=== PATIENT | female | born 1980 | race Caucasian/White ===

== ENCOUNTER 2019-07-11 18:53 | Emergency (ER) | payer SELFPAY ==
[2019-07-11 18:58] VITALS: PULSE 104; RESP 20; TEMP 36.7; O2SAT 95; BMI 41.9
[2019-07-11 19:01] VITALS: BP 261/141
--- NOTE | 2019-07-11 19:08 | ED_ITS ---
Entered by Mireya Santacruz, acting as scribe for Gurmeet Caputo DO HPI - Extremity Problem General: Chief complaint: Extremity Problem,Nontraumatic Stated complaint: SWOLLEN LEGS Time Seen by Provider: 07/11/19 19:07 Source: patient Mode of arrival: ambulatory History of Present Illness: HPI Narrative: 38 y/o female presents to the ED with complaint of lower extremity swelling. Pt states she has been out of her blood pressure medication for the past year. She reports having a rash on both legs for 2 months. It started on the right solares and she thought it might have been a spider bite. Since then it has spread to the other leg and is very itchy. She reports some difficulty breathing/wheezing when she lays flat in bed at night. MD Complaint: extremity swelling Onset (ago): week(s) Pain Consistency: constant Location: left, right and lower extremity Associated symptoms: Reports rash (foliculitis to BLE); Deny chest pain or fever(s) Review of Systems Const: Denies: fever or chills Eyes: Denies: change in vision or blurry vision ENMT: Denies: Change in hearing, nose bleeds, post nasal drip or facial/sinus pain Card: Reports: edema, swelling of feet/ankles and shortness of breath when lying down; Denies: chest pain, palpitations, irregular heart rhythm or shortness of breath on exertion Resp: Reports: wheezing (at night while laying flat); Denies: productive cough or non-productive cough GI: Denies: abdominal pain, nausea, vomiting, rectal pain, blood in stool or black tarry stool : Denies: painful urination, urinary frequency, urinary urgency or blood in urine Musc: Reports: extremity swelling; Denies: neck pain, back pain, redness or joint warmth Skin/Breast: Reports: rash (foliculitis to BLE), itching and redness Neuro: Denies: headache, dizziness, vertigo, confusion or seizure-like activity Psych: Denies: anxiety PFSH ED PFSH: Social History Smoking and tobacco status: former smoker Female Reproductive History: Date of last menstrual period: 07/11/19 Physical Exam Const: COMMON NORMALS: alert GENERAL APPEARANCE: well developed ORIENTATION/CONSCIOUSNESS: Yes awake, Yes oriented to person, Yes oriented to place and Yes oriented to time HENMT: COMMON NORMALS: normocephalic, external ears normal, external nose normal and moist oral mucous membranes HEAD & SCALP: normocephalic; no scalp tenderness FACE & SINUS: normal facial exam NOSE: external nose normal and no nasal discharge EXTERNAL EAR: Yes external ears normal MOUTH: tongue normal TEETH & GINGIVA: no abnormal tooth and associated gingiva THROAT: posterior oropharynx normal; no peritonsillar mass Eye: COMMON NORMALS: PERRL, EOMs intact bilaterally and conjunctivae normal EYELID: eyelids normal CONJUNCTIVA: Yes conjunctivae normal PUPIL: Yes PERRL Chest: COMMONS NORMALS: inspection of chest normal CHEST: Yes symmetrical chest wall rise and No tenderness Resp: COMMON NORMALS: clear to auscultation bilaterally EFFORT & INSPECTION: No tachypneic, No respiratory distress, No retractions, No uses accessory muscles and No tracheal deviation AUSCULTATION: clear to auscultation bilaterally, no rhonchi, no wheezes and lung sounds not diminished Cardio: COMMON NORMALS: regular rate and regular rhythm RATE: regular rate RHYTHM: regular rhythm HEART SOUNDS: no murmurs PERIPHERAL PULSES: radial pulses present GI: INSPECTION: No abdominal distension AUSCULTATION: No hyperactive bowel sounds and No hypoactive bowel sounds PALPATION: No tender, No guarding and No rigid PERCUSSION: no dullness to percussion and no tympanic to percussion : COMMON NORMALS: Yes no CVA tenderness BLADDER/KIDNEY EXAM: Yes no CVA tenderness Back/Pelvis: COMMON NORMALS: no CVA tenderness PELVIS: Yes no pain with anterior-posterior compression and Yes no pain with lateral compression Extremity: GENERAL: Yes edema RIGHT LOWER EXTREMITY: Yes lower leg LEFT LOWER EXTREMITY: Yes lower leg Neuro: SENSORIUM/ORIENTATION: Yes alert, Yes oriented to person, Yes oriented to place and Yes oriented to time Psych: COMMON NORMALS: mental status grossly normal and speech normal SPEECH: Yes normal speech Skin: RASHES: rashes noted (folliculitis, erythema) Course Vital Signs: Vital signs: Vital Signs Temperature 98.1 F 07/11/19 18:58 Pulse Rate 86 07/11/19 20:31 Respiratory Rate 18 07/11/19 20:31 Blood Pressure 200/114 07/11/19 20:31 Pulse Oximetry 98 07/11/19 20:31 MDM - Extremity (Nontraumatic) MDM Narrative: Medical decision making narrative: Labs are benign. Blood pressure began to came down with the clonidine. She will be prescribed lisinopril and hydrochlorothiazide because of the edema and stasis dermatitis. She also be prescribed doxycycline for the follicular component. Lab Data: Labs: Lab Results 07/11/19 07/11/19 07/11/19 Range/Units 19:28 19:28 19:28 WBC 6.2 (4.0-10.0) 10^3/ uL RBC 4.50 (4.1-5.3) 10^6/u L Hgb 10.5 L (11.5-15.3) g/dL Hct 35.6 L (37.0-47.0) % MCV 79.1 L (81-99) fL MCH 23.3 L (28.0-34.0) pg MCHC 29.5 L (30.0-36.0) g/dL RDW 17.2 H (12.1-15.1) % Plt Count 293 (130-400) 10^3/c mm MPV 10.2 (7.4-10.4) fL Neut % (Auto) 68.7 % Lymph % (Auto) 20.0 % [place] % (Auto) 6.4 % Eos % (Auto) 4.0 % Baso % (Auto) 0.6 % Neut # (Auto) 4.3 (1.8-7.7) 10^3/u L Lymph # (Auto) 1.3 (0.8-4.8) 10^3/u L [place] # (Auto) 0.4 (0.2-0.9) 10^3/u L Eos # (Auto) 0.3 (0.0-0.8) 10^3/u L Baso # (Auto) 0.0 (0.0-0.1) 10^3/u L Nucleated RBC % (a uto) 0 % Nucleated RBCs # 0.0 /100WBC Sodium 139 (136-145) mmol/L Potassium 3.5 (3.5-5.1) mmol/L Chloride 102 (98-107) mmol/L Carbon Dioxide 25 (22-29) mmol/L Anion Gap 15.5 (5-19) BUN 13 (6-20) mg/dL Creatinine 0.6 (0.5-0.9) mg/dL GFR Calculation 112.5 (90-130) mL/min Glucose 129 H (65-115) mg/dL Calcium 9.5 (8.5-10.5) mg/dL Total Bilirubin 0.6 (0.15-1.2) mg/dL AST 29 (0-32) U/L ALT 31 (0-33) U/L Alkaline Phosphata se 89 (35-105) IU/L Total Protein 7.4 (6.6-8.7) g/dL Albumin 3.9 (3.5-5.2) g/dL Globulin 3.5 (1.3-4.6) g/dL HCG, Qual Negative (Negative) Discharge Plan Discharge Patient Disposition: Home, Self-Care Clinical Impression: Venous stasis dermatitis of both lower extremities, Lower extremity edema Hypertension Qualifiers: Hypertension type: essential hypertension Qualified Code(s): I10 - Essential (primary) hypertension Condition: Stable Prescriptions: New doxycycline hyclate 100 mg capsule 100 mg PO BID 10 Days Qty: 20 RF: 0 lisinopril 20 mg tablet 20 mg PO DAILY Qty: 30 RF: 0 hydrochlorothiazide 25 mg tablet 25 mg PO DAILY Qty: 30 RF: 0 Discharge Orders: Discharge Order (Routine); Ordered 07/11/19 Ordered By: Gurmeet Caputo Referrals: Nazanin Calderon MD [Family Provider] - Discharge Diet: Usual diet Discharge Activity: Increase activity as tolerated Patient Instructions: Chronic Hypertension (ED), Stasis Dermatitis (ED) Activity Restrictions/Additional Instructions: Return for fever greater than 100, worsening swelling despite treatment, other concerning symptoms. You should hear from case management next week to set up a primary provider. Discharge Date/Time: 07/11/19 20:32 Coding Level of Care Code ED Supervisor Assembly And Packing for Chg Fwd Exam Comprehensive The documentation recorded by the Noam montague Ashley, accurately reflects the service I personally performed and the decisions made by Harshal benson Jeremy John, DO Jul 11, 2019 18:53
[2019-07-11] MEDS: doxycycline 100 mg Tablet PO (19:35)
[2019-07-11] MEDS: dexamethasone 4 mg Tablet 8 MG PO (19:36)
[2019-07-11] MEDS: lisinopril 20 mg Tablet PO (19:36)
[2019-07-11] MEDS: FUROsemide 40 mg Tablet 80 MG PO (19:36)
[2019-07-11 19:40] LABS: Basophils % 0.6 %; Eosinophils # 0.3 10^3/uL (0.0-0.8); Hematocrit 35.6 % (37.0-47.0); Hemoglobin 10.5 g/dL (11.5-15.3); Lymphocytes # 1.3 10^3/uL (0.8-4.8); Mean Corpuscular HGB Conc 29.5 g/dL (30.0-36.0); Mean Corpuscular Hemoglobin 23.3 pg (28.0-34.0); Mean Corpuscular Volume 79.1 fL (81-99); Mean Platelet Volume 10.2 fL (7.4-10.4); Monocytes # 0.4 10^3/uL (0.2-0.9); Monocytes % 6.4 %; Neutrophils # 4.3 10^3/uL (1.8-7.7); Neutrophils % 68.7 %; Nucleated Red Blood Cells % 0 %; Platelet Count 293 10^3/cmm (130-400); Red Cell Distribution Width 17.2 % (12.1-15.1); White Blood Count 6.2 10^3/uL (4.0-10.0)
[2019-07-11] MEDS: cloNIDine 0.1 mg Tablet 0.2 MG PO (19:41)
[2019-07-11 19:56] LABS: Alanine Aminotransferase 31 U/L (0-33); Albumin Level 3.9 g/dL (3.5-5.2); Alkaline Phosphatase 89 IU/L (35-105); Anion Gap 15.5 (5-19); Aspartate Amino Transferase 29 U/L (0-32); Blood Urea Nitrogen 13 mg/dL (6-20); Calcium 9.5 mg/dL (8.5-10.5); Carbon Dioxide 25 mmol/L (22-29); Chloride 102 mmol/L (98-107); Globulin 3.5 g/dL (1.3-4.6); Glomerular Filtration Rate 112.5 mL/min (90-130); Glucose 129 mg/dL (65-115); Potassium 3.5 mmol/L (3.5-5.1); Sodium 139 mmol/L (136-145); Total Bilirubin 0.6 mg/dL (0.15-1.2); Total Protein 7.4 g/dL (6.6-8.7)
--- NOTE | 2019-07-11 19:58 | ECG_ITS ---
Measurements Intervals [place] Rate: 82 P: 53 GA: 155 QRS: 37 QRSD: 110 T: 164 QT: 407 QTc: [address] DEVIATION AND MODERATE T-WAVE ABNORMALITY, CONSIDER LATERAL ISCHEMIA No previous ECG available for comparison Electronically Signed On 07-12-2019 13:06:57 PASTEURIZER HELPER by Klaudia Ordoñez M.D. [email or web address]
--- NOTE | 2019-07-11 20:16 | PC.NURSE ---
EKG performed and shown to ED physician.
[2019-07-11 20:18] VITALS: BP 222/126; PULSE 75; RESP 16; O2SAT 99
[2019-07-11 20:31] VITALS: BP 200/114; PULSE 86; RESP 18; O2SAT 98
[2019-07-11 20:39] LABS: HCG, Serum Qual Negative (Negative)
--- NOTE | 2019-07-14 14:16 | DCPLANNER ---
restaurant area manager had message to speak with patient about getting established with a primary care physician. restaurant area manager called patient, unable to speak with patient at this time. restaurant area manager left a message for patient to return mattress spring encaser phone call.
--- NOTE | 2019-07-17 11:07 | DCPLANNER ---
frozen foods manager called [facility], spoke with Katerin, a follow up appointment was scheduled for Sunday, July 28, 2019 at 9:00 with Anamaria Randall. frozen foods manager called patient to inform patient of this, unable to speak with patient at this time. frozen foods manager left a voicemail for patient to return pillowcase cutter phone call.
--- NOTE | 2019-07-29 15:31 | DCPLANNER ---
Patient did attend appointment scheduled for 07.28.19 at [facility] with Alida Randall.
== END 2019-07-11 20:32 | disposition home or self-care (01) ==
PROVIDERS: Emergency Provider Emergency Medicine; Family Provider Family Medicine
DX: I87.2 Venous insufficiency (chronic) (peripheral) (principal); I10 Essential (primary) hypertension; Z87.891 Personal history of nicotine dependence
CPT/HCPCS: 80053; 84703; 85025; 93005; 99281; 99283; J8540

== ENCOUNTER → 2019-10-19 14:00 | Outpatient (BNVA) | payer SELFPAY | PROVIDERS: Family Provider Family Medicine; PCP Nurse Practitioner; Visit Provider Obstetrics & Gynecology | DX: N92.1 Excessive and frequent menstruation with irregular cycle (principal) | CPT/HCPCS: 83001; 84146; 84443; 84703; 85025 ==

== ENCOUNTER → 2019-10-30 09:21 | Outpatient (BNVA) | payer SELFPAY | PROVIDERS: Family Provider Family Medicine; PCP Nurse Practitioner; Visit Provider Obstetrics & Gynecology | DX: N92.1 Excessive and frequent menstruation with irregular cycle (principal) | CPT/HCPCS: 76830; 76856 ==

== ENCOUNTER 2019-12-02 11:41 | Day surgery (SDC) | payer SELFPAY ==
[2019-12-02] VITALS (8 sets, daily range): BP systolic 111–195; BP diastolic 64–111; PULSE 84–87; RESP 16–20; TEMP 36.4–37.1; O2SAT 98–100
[2019-12-02 12:00] LABS: OR HCG Qualitative Urine Negative (Negative)
[2019-12-02] MEDS: sodium chloride 0.9% 1,000 ML 30 ML IV (12:16)
[2019-12-02 12:22] LABS: Basophils % 0.4 %; Eosinophils # 0.1 10^3/uL (0.0-0.8); Eosinophils % 1.8 %; Hematocrit 31.8 % (37.0-47.0); Hemoglobin 8.8 g/dL (11.5-15.3); Lymphocytes # 1.5 10^3/uL (0.8-4.8); Lymphocytes % 18.3 %; Mean Corpuscular HGB Conc 27.7 g/dL (30.0-36.0); Mean Corpuscular Hemoglobin 19.8 pg (28.0-34.0); Mean Corpuscular Volume 71.5 fL (81-99); Mean Platelet Volume 9.6 fL (7.4-10.4); Monocytes # 0.5 10^3/uL (0.2-0.9); Monocytes % 5.7 %; Neutrophils # 5.81 10^3/uL (1.8-7.7); Neutrophils % 73.4 %; Nucleated Red Blood Cells % 0 %; Platelet Count 389 10^3/cmm (130-400); Red Blood Count 4.45 10^6/uL (4.1-5.3); Red Cell Distribution Width 18.3 % (12.1-15.1); White Blood Count 7.9 10^3/uL (4.0-10.0)
--- NOTE | 2019-12-02 12:38 | P.ANESASSM_ITS ---
Pre-Anesthetic Assessment Pre-Anesthetic Assessment: Height/Weight: Height 1.68 m Weight 132.449 kg Temp Pulse Resp BP Pulse Ox 97.5 F L 87 18 190/91 100 12/02/19 12:08 12/02/19 12:08 12/02/19 12:08 12/02/19 12:20 12/02/19 12:08 Proposed Procedure: Operation Date: 12/02/19 13:00 Proposed Procedures p Hysteroscopy w/ Paracervical Block 88923 [id number] 79968 N93.9 N92.1(Not Applicable) - Joseph Mckoy MD s Dilation And Curettage (D&C) w/ Myosure(Not Applicable) - Joseph Mckoy MD Was Beta Mohsen taken within 24 hours: N/A Last intake: Intake Last Liquid Date 12/01/19 Last Liquid Time 00:00 Last Solid Date 12/01/19 Last Solid Time 18:00 Social: Social History: No alcohol and No tobacco Exam: Pre-Anes Outpt Exam: alert, oriented x 3 and clear to auscultation bilaterally Airway: Submandibular: WNL Cervical ROM: WNL MP: 1 History/ROS: No significant complaints Pulmonary: Pulmonary: None reported CV/HEM: CV/HEM: HTN : : None reported Hepatic: Hepatic: None reported GI: GI: None reported Metabolic: Metabolic: Morbid obesity Musc/skel: [facility] [place]/skel: None reported Neuropsych: Neuropsych: None reported Anesthetic Plan: ASA status: 2 Anesthesia: General Meds/Allergies Current Medications: Current Medications Generic Name Dose Route Start Last Admin Trade Name Freq PRN Reason Stop Dose Admin Sodium Chloride 1,000 mls @ 30 ml s/hr 12/02/19 11:45 12/02/19 12:16 Sodium Chloride 0.9% IV 12/03/19 11:44 30 mls/hr .Q24H MIKEY Administration PFSH Anesthesia PFSH: Medical History delivery delivered Hypertension Menometrorrhagia Morbid obesity Surgical History History of tubal ligation Hx of appendectomy Family History Father Diabetes Hypertension Hyperlipidemia Grandmother Diabetes Paternal grandmother Hypertension Hyperlipidemia Heart disease Paternal grandmother Mother Hypertension Family/Other Breast cancer Paternal aunt--dx in her 50s Other Cancer Dementia Lung disease Denies family history of Colon cancer Ovarian cancer Family history of thyroid problem Uterine cancer Stroke Social History Smoking and tobacco status: former smoker Quit status (tobacco): has quit using tobacco Year quit tobacco: as a kid Alcohol intake: never Substance/Drug Use: never Female Reproductive History: Date of last menstrual period: 11/29/19 Data Anesthesia CBC & Chem 7: 12/02/19 12:00 Other Labs: Laboratory Results - last 48 hr 12/01/19 12/02/19 11:59 12:00 WBC 7.9 RBC 4.45 Hgb 8.8 L Hct 31.8 L MCV 71.5 L MCH 19.8 L MCHC 27.7 L RDW 18.3 H Plt Count 389 MPV 9.6 Neut % (Auto) 73.4 Lymph % (Auto) 18.3 [place]bert % (Auto) 5.7 Eos % (Auto) 1.8 Baso % (Auto) 0.4 Neut # (Auto) 5.81 Lymph # (Auto) 1.5 Elbert # (Auto) 0.5 Eos # (Auto) 0.1 Baso # (Auto) 0.0 Nucleated RBC % (auto) 0 Nucleated RBCs # 0.0 Urine HCG, Qual Negative Cardiac Studies: No Data to Display
[2019-12-02 12:40] LABS: Anion Gap 12.6 (5-19); Blood Urea Nitrogen 11 mg/dL (6-20); Calcium 8.9 mg/dL (8.5-10.5); Carbon Dioxide 27 mmol/L (22-29); Chloride 104 mmol/L (98-107); Glomerular Filtration Rate 111.9 mL/min (90-130); Glucose 120 mg/dL (65-115); Osmolality Calculated 287 mOsm/kg (285-295); Potassium 3.6 mmol/L (3.5-5.1); Sodium 140 mmol/L (136-145)
--- NOTE | 2019-12-02 12:54 | W.PM.OPSUD ---
Surgery/Procedure H&P Update DATE OF PROCEDURE: December 02, 2019 DATE H&P PERFORMED: 11/30/19 H&P UPDATE INFORMATION: I have reviewed H&P completed within last 30 days, I have examined patient prior to procedure and No changes to prior documentation PLANNED PROCEDURE: Operation Date: 12/02/19 13:00 Proposed Procedures p Hysteroscopy w/ Paracervical Block 54992 [id number] 02011 N93.9 N92.1(Not Applicable) - Joseph Mckoy MD s Dilation And Curettage (D&C) w/ Myosure(Not Applicable) - Joseph Mckoy MD
--- NOTE | 2019-12-02 13:59 | P.OP_ITS ---
Operative Report Date of procedure: December 02, 2019 Pre-op Diagnosis: Abnormal uterine bleeding Post-op diagnosis: same Post-op Findings: Proliferative endometrium Procedure Done: Hysteroscopy with dilation and curettage Pathology: Endometrial curettings Surgeon: Joseph Mckoy Anesthesia: General Estimated blood loss (mL): 10 IV fluids (mL): 700 Complications: Cervical stenosis Findings: Proliferative endometrium Condition: stable Disposition: PACU Brief History: 39-year-old female, With abnormal uterine bleeding Procedure: After informed consent, the risks included but were not limited to bleeding, infection, injury to internal organs. The patient was counseled on a possible laparotomy and on the potential need for hysterectomy. The patient expressed understanding of the risks involved, all questions were answered, and the patient consented to the procedure. The patient was taken to the operating room where general anesthesia was administered. She was placed in the dorsal lithotomy position and prepped and draped in sterile fashion. A time out procedure was performed. The patient was examined under anesthesia and found to have a normal uterus with normal adnexa. A sterile speculum was placed in the vagina, and the anterior lip of cervix was grasped with the single toothed tenaculum. The uterus was then gently sounded to 10 cm, and the cervix was dilated with cervical dilators. A 2.7-cm hysteroscope advanced gently to the uterine fundus while visualizing the monitor. Survey of the uterine cavity showed: fundus normal Proliferative endometrium; left ostium, and lateral wall with pr oliferative endometrium; right ostium, and lateral wall with Proliferative endometrium; anterior and posterior [place] are with Proliferative endometrium; endocervical canal is normal. The curette was advanced gently to the uterine fundus rotated to clear the uterus. The curettage was then performed until a gritty texture was noted. Hysteroscopy was reinserted. There was minimal bleeding noted and the tenaculum removed with goad hemostasis noted. The patient tolerated the procedure well. The patient was taken to the recovery area in stable condition.
--- NOTE | 2019-12-02 14:08 | SUR.PHASEI ---
PT AWAKE ALERT ON RA PT TAKING ICE CHIPS WITHOUT DIFFICULTY, VSS ABD SOFT AND LARGE, PT DENIES PAIN AND NAUSEA
== END 2019-12-02 15:08 | disposition home or self-care (01) ==
PROVIDERS: Family Provider Family Medicine; PCP Nurse Practitioner; Visit Provider Obstetrics & Gynecology
PROC: 0UJD8ZZ Inspection of Uterus and Cervix, Via Natural or Artificial Opening Endoscopic (ICD-10-PCS; CPT 58555; principal; 2019-12-02 13:00)
PROC: (CPT 58120; 2019-12-02 13:00)
DX: N93.9 Abnormal uterine and vaginal bleeding, unspecified (principal); N92.1 Excessive and frequent menstruation with irregular cycle; I10 Essential (primary) hypertension; E66.01 Morbid (severe) obesity due to excess calories; Z68.42 Body mass index [BMI] 45.0-49.9, adult; Z87.891 Personal history of nicotine dependence; Z79.82 Long term (current) use of aspirin
CPT/HCPCS: 58558; 12345; 36415; 80048; 81025; 84703; 85025; 86850; 86900; 88305; J2704; J3010; J7030

== ENCOUNTER → 2020-01-22 11:00 | Outpatient (BNVA) | payer OTHER, SELFPAY | PROVIDERS: Family Provider Family Medicine; PCP Nurse Practitioner; Visit Provider Nurse Practitioner Family | DX: J06.9 Acute upper respiratory infection, unspecified (principal); Z11.59 Encounter for screening for other viral diseases | CPT/HCPCS: 87635 ==

== ENCOUNTER → 2020-02-17 16:28 | Outpatient (BNVA) | payer OTHER, SELFPAY | PROVIDERS: Family Provider Family Medicine; PCP Nurse Practitioner; Visit Provider Nurse Practitioner Family | DX: Z11.59 Encounter for screening for other viral diseases (principal); J06.9 Acute upper respiratory infection, unspecified | CPT/HCPCS: 87635 ==

== ENCOUNTER → 2020-03-08 08:54 | Outpatient (BNVA) | payer SELFPAY | PROVIDERS: Family Provider Family Medicine; PCP Nurse Practitioner; Visit Provider Family Medicine Adult Medicine | DX: I10 Essential (primary) hypertension (principal); E66.01 Morbid (severe) obesity due to excess calories; Z68.42 Body mass index [BMI] 45.0-49.9, adult; Z20.828 Contact with and (suspected) exposure to other viral communicable diseases; M54.5 Low back pain; G89.29 Other chronic pain; D64.9 Anemia, unspecified | CPT/HCPCS: 80053; 80061; 84443; 85025 ==

== ENCOUNTER → 2020-05-31 13:54 | Outpatient (BNVA) | payer SELFPAY | PROVIDERS: Family Provider Family Medicine; PCP Nurse Practitioner; Visit Provider Obstetrics & Gynecology | DX: Z20.828 Contact with and (suspected) exposure to other viral communicable diseases (principal); Z01.812 Encounter for preprocedural laboratory examination | CPT/HCPCS: 87635 ==

== ENCOUNTER → 2020-06-07 08:00 | Outpatient (BNVA) | payer SELFPAY | PROVIDERS: PCP Family Medicine Adult Medicine; Visit Provider Obstetrics & Gynecology | DX: Z11.59 Encounter for screening for other viral diseases (principal); N92.0 Excessive and frequent menstruation with regular cycle; N93.9 Abnormal uterine and vaginal bleeding, unspecified | CPT/HCPCS: 87635 ==

== ENCOUNTER 2020-06-08 23:05 | Day surgery (SDC) | payer BC, MEDICAID, SELFPAY ==
[2020-06-06 14:34] VITALS: BMI 48.9
[2020-06-06 14:34] LABS: Add Urine Microscopic? NO
[2020-06-06 14:41] LABS: Basophils # 0.1 10^3/uL (0.0-0.1); Eosinophils # 0.2 10^3/uL (0.0-0.8); Eosinophils % 3.2 %; Hematocrit 35.8 % (37.0-47.0); Lymphocytes # 1.3 10^3/uL (0.8-4.8); Lymphocytes % 17.4 %; Mean Corpuscular HGB Conc 30.7 g/dL (30.0-36.0); Mean Corpuscular Hemoglobin 25.7 pg (28.0-34.0); Mean Corpuscular Volume 83.6 fL (81-99); Mean Platelet Volume 10.6 fL (7.4-10.4); Monocytes # 0.4 10^3/uL (0.2-0.9); Monocytes % 5.6 %; Neutrophils # 5.06 10^3/uL (1.8-7.7); Neutrophils % 70.6 %; Nucleated Red Blood Cells % 0 %; Platelet Count 259 10^3/cmm (130-400); Red Blood Count 4.28 10^6/uL (4.1-5.3); White Blood Count 7.2 10^3/uL (4.0-10.0)
--- NOTE | 2020-06-06 14:44 | ANES.PREANE2 ---
Pre-Anesthetic Assessment Pre-Anesthetic Assessment: Height/Weight: Height 1.68 m Weight 137.438 kg Preop Diagnosis: menometrorrhagia Proposed Procedure: Operation Date: 06/08/20 11:35 Proposed Procedures p Hysteroscopy w/ Ablation w/ Novasure(Not Applicable) - Joseph Mckoy MD Familial anesthetic complications: None Social: Social History: No alcohol and No tobacco Exam: Pre-Anes Outpt Exam: alert, oriented x 3, clear to auscultation bilaterally and regular rate & rhythm Airway: Cervical ROM: WNL MP: 2 Dentition: Full Pulmonary: Pulmonary: None reported CV/HEM: CV/HEM: Anemia and HTN Comments: No chest pain since february Able to achieve > 4 METS without Chest pain Metabolic: Metabolic: Morbid obesity Musc/skel: Musc/skel: Lower Back Pain Anesthetic Plan: ASA status: 3 Anesthesia: General Risk of > 500 ml blood loss (7ml/kg in children): No PFSH Anesthesia PFSH: Medical History Abnormal uterine bleeding (AUB) Aftercare following surgery of the genitourinary system Anemia delivery delivered Chest pain at rest Chronic low back pain Encounter to establish care Hypertension Hypertensive crisis Menometrorrhagia Morbid obesity with BMI of 45.0-49.9, adult Status post hysteroscopy Hysteroscopy with D&C- performed on 12/02/[address] Mckoy at [facility] Viral URI with cough Surgical History H/O section x1 History of tubal ligation Hx of appendectomy Family History Father Diabetes Hypertension Hyperlipidemia Grandmother Diabetes Paternal grandmother Hypertension Hyperlipidemia Heart disease Paternal grandmother Mother Hypertension Family/Other Breast cancer Paternal aunt--dx in her 50s Other Cancer Dementia Lung disease Denies family history of Colon cancer Ovarian cancer Family history of thyroid problem Uterine cancer Stroke Social History (Updated 06/06/20 @ 08:06 by Mireya Ramírez RN) Smoking and tobacco status: former smoker Quit status (tobacco): has quit using tobacco Year quit tobacco: as a kid Alcohol intake: never Substance/Drug Use: never Female Reproductive History: Date of last menstrual period: 05/13/20 Data Anesthesia CBC & Chem 7: 06/06/20 14:10 06/06/20 14:10 Other Labs: Laboratory Results - last 48 hr 06/06/20 14:10 WBC 7.2 RBC 4.28 Hgb 11.0 L Hct 35.8 L MCV 83.6 MCH 25.7 L MCHC 30.7 RDW 16.0 H Plt Count 259 MPV 10.6 H Neut % (Auto) 70.6 Lymph % (Auto) 17.4 [place] % (Auto) 5.6 Eos % (Auto) 3.2 Baso % (Auto) 1.0 Neut # (Auto) 5.06 Lymph # (Auto) 1.3 [place] # (Auto) 0.4 Eos # (Auto) 0.2 Baso # (Auto) 0.1 Nucleated RBC % (auto) 0 Nucleated RBCs # 0.0 Cardiac Studies: No Data to Display
[2020-06-06 14:51] LABS: Bilirubin Urine Neg (Negative); Blood Urine Neg (Negative); Glucose Urine UA 4+ (Normal); Ketones Urine Negative (Negative); Leukocyte Esterase Urine Negative (Negative); Nitrate Urine Negative (Negative); Protein Urine Neg (Negative); Specific Gravity, Urine 1.025 (1.005-1.030); Urine Appearance Clear (CLEAR); Urine Color Yellow (Yellow); Urobilinogen Urine Norm (Negative); pH Urine 5 (5-7)
[2020-06-06 15:34] LABS: Alanine Aminotransferase 84 U/L (0-33); Albumin Level 3.9 g/dL (3.5-5.2); Alkaline Phosphatase 102 IU/L (35-105); Anion Gap 11.3 (5-19); Aspartate Amino Transferase 83 U/L (0-32); Blood Urea Nitrogen 9 mg/dL (6-20); Calcium 9.1 mg/dL (8.5-10.5); Carbon Dioxide 30 mmol/L (22-29); Chloride 98 mmol/L (98-107); Globulin 3.2 g/dL (1.3-4.6); Glomerular Filtration Rate 93.6 mL/min (90-130); Glucose 304 mg/dL (65-115); Osmolality Calculated 290 mOsm/kg (285-295); Potassium 4.3 mmol/L (3.5-5.1); Sodium 135 mmol/L (136-145); Total Bilirubin 0.5 mg/dL (0.15-1.2); Total Protein 7.1 g/dL (6.6-8.7)
== END 2020-06-08 23:06 | disposition home or self-care (01) ==
LOC: OR 02-22 18:13
PROVIDERS: PCP Family Medicine Adult Medicine; Visit Provider Obstetrics & Gynecology
DX: Z01.818 Encounter for other preprocedural examination (principal)
CPT/HCPCS: 36415; 80053; 81003; 85025; 86850; 86900

== ENCOUNTER → 2020-07-07 09:31 | Outpatient (BNVA) | payer OTHER, SELFPAY | PROVIDERS: PCP Family Medicine Adult Medicine | DX: Z20.828 Contact with and (suspected) exposure to other viral communicable diseases (principal) | CPT/HCPCS: 87635 ==

== ENCOUNTER 2020-08-24 08:50 | Outpatient (CLI) | payer MEDICAID, SELFPAY ==
[2020-08-22 10:23] VITALS: BMI 47.2
--- NOTE | 2020-08-22 10:37 | P.ANESASSM_ITS ---
Pre-Anesthetic Assessment Pre-Anesthetic Assessment: Height/Weight: Height 1.68 m Weight 132.903 kg Preop Diagnosis: menometrorrhagia Proposed Procedure: Operation Date: 08/24/20 09:00 Proposed Procedures p Hysteroscopy w/ Ablation w/ Novasure 43932 N92.1 N93.9(Not Applicable) - Joseph Mckoy MD Familial anesthetic complications: none Social: Social History: No alcohol and No tobacco Exam: Pre-Anes Outpt Exam: alert, oriented x 3, clear to auscultation bilaterally and regular rate & rhythm Airway: Cervical ROM: WNL MP: 2 Dentition: Full Pulmonary: Comments: covid in june - feeling back to baseline CV/HEM: CV/HEM: Anemia and HTN Metabolic: Metabolic: Morbid obesity Musc/skel: Musc/skel: Lower Back Pain Anesthetic Plan: ASA status: 2 Anesthesia: MAC Risk of > 500 ml blood loss (7ml/kg in children): No PFSH Anesthesia PFSH: Medical History Abnormal uterine bleeding (AUB) Aftercare following surgery of the genitourinary system Anemia delivery delivered Chest pain at rest Chronic low back pain Encounter to establish care Hypertension Hypertensive crisis Menometrorrhagia Morbid obesity with BMI of 45.0-49.9, adult Status post hysteroscopy Hysteroscopy with D&C- performed on 12/02/[address] Mckoy at [facility] Viral URI with cough Surgical History H/O section x1 History of tubal ligation Hx of appendectomy Family History Father Diabetes Hypertension Hyperlipidemia Grandmother Diabetes Paternal grandmother Hypertension Hyperlipidemia Heart disease Paternal grandmother Mother Hypertension Family/Other Breast cancer Paternal aunt--dx in her 50s Other Cancer Dementia Lung disease Denies family history of Colon cancer Ovarian cancer Family history of thyroid problem Uterine cancer Stroke Social History (Updated 08/22/20 @ 08:05 by Mireya Ramírez RN) Smoking and tobacco status: former smoker Quit status (tobacco): has quit using tobacco Year quit tobacco: as a kid Alcohol intake: never Substance/Drug Use: never Female Reproductive History: Date of last menstrual period: 07/28/20 Data Anesthesia Cardiac Studies: No Data to Display
[2020-08-24 07:44] VITALS: PULSE 105; RESP 18; TEMP 36.5; O2SAT 96
[2020-08-24] MEDS: sodium chloride 0.9% 500 ML IV (08:02)
--- NOTE | 2020-08-24 08:06 | ANES.PAUD2 ---
Pre-Anesthetic Update Pre-Anesthetic Assessment: Date of Surgery/Procedure: 08/24/20 Preop Diagnosis: menometrorrhagia Proposed Procedure: Operation Date: 08/24/20 09:00 Proposed Procedures p Hysteroscopy w/ Ablation w/ Novasure 70809 N92.1 N93.9(Not Applicable) - Joseph Mckoy MD Any changes to Pre-Anesthetic Assessment?: No Vitals: Temperature 97.7 F 08/24/20 07:44 Pulse Rate 105 H 08/24/20 07:44 Respiratory Rate 18 08/24/20 07:44 Pulse Oximetry 96 08/24/20 07:44 Oxygen Delivery Me thod 08/24/20 07:48 Exam: Pre-Anes Outpt Exam: alert, oriented x 3, clear to auscultation bilaterally and regular rate & rhythm Other Pertinent Information: Other Pertinent Information: Took metoprolol this morning Cardiac Studies: No Data to Display
[2020-08-24 08:09] LABS: OR HCG Qualitative Urine Negative (Negative)
[2020-08-24] MEDS: labetalol 5 mg/mL SDV 20mL 10 MG IVP ×2 (08:15→09:15)
[2020-08-24] MEDS: scopolamine 1.5 Patch 1 PATCH TRANSDERMA (08:17)
[2020-08-24] MEDS: hyDRALAzine 20 mg/mL INJ 1 mL 5 MG IVP (08:49)
[2020-08-24] MEDS: midazolam 1 mg/mL INJ 2 mL 2 MG IVP (09:02)
--- NOTE | 2020-08-24 10:30 | SUR.PREOP ---
PER ANESTHESIA, PATIENTS PROCEDURE WAS CANCELLED DUE TO CONTINUED HIGH BLOOD PRESSURE AFTER MULTIPLE IV MEDICATIONS. PATIENT HAVING SYMPTOMS OF HEADACHE WELL.
== END 2020-08-24 08:51 | disposition home or self-care (01) ==
LOC: OPS 01-16 14:46
PROVIDERS: Anesthesiology; PCP Family Medicine Adult Medicine; Visit Provider Obstetrics & Gynecology
PROC: 0U598ZZ Destruction of Uterus, Via Natural or Artificial Opening Endoscopic (ICD-10-PCS; CPT 58563; principal; 2020-08-24 16:00)
DX: Z01.818 Encounter for other preprocedural examination (principal); N92.1 Excessive and frequent menstruation with irregular cycle; I10 Essential (primary) hypertension; E66.01 Morbid (severe) obesity due to excess calories; Z68.42 Body mass index [BMI] 45.0-49.9, adult; Z83.3 Family history of diabetes mellitus; Z82.49 Family history of ischemic heart disease and other diseases of the circulatory system; Z87.891 Personal history of nicotine dependence
CPT/HCPCS: 84703; 96374; J0360; J2250; J3490; J7040

== ENCOUNTER → 2020-09-12 10:03 | Outpatient (BNVA) | payer MEDICAID, SELFPAY | PROVIDERS: PCP Family Medicine Adult Medicine; Visit Provider Family Medicine Adult Medicine | DX: E66.01 Morbid (severe) obesity due to excess calories (principal); Z68.42 Body mass index [BMI] 45.0-49.9, adult; E78.1 Pure hyperglyceridemia; D64.9 Anemia, unspecified; I16.9 Hypertensive crisis, unspecified; I10 Essential (primary) hypertension; R07.9 Chest pain, unspecified | CPT/HCPCS: 80053; 80061; 83036; 85025 ==